=== PATIENT | male | born 1985 | race Two or more races ===

== ENCOUNTER 2019-01-07 00:55 | Emergency (ER) | payer MEDICAID, OTHER ==
[~2019-01-07] VITALS: Ht 172.7 cm; Wt 89.0 kg
[2019-01-07 02:33] VITALS: BP 147/93
== END 2019-01-07 02:35 | disposition home or self-care (01) ==
LOC: ED 02:27
DX: F10.120 Alcohol abuse with intoxication, uncomplicated (principal)
CPT/HCPCS: 99283